=== PATIENT | female | born 1945 | race Caucasian/White ===

== ENCOUNTER → 2024-01-19 10:38 | Outpatient (REF) | payer MEDICARE, OTHER, SELFPAY | LOC: WDC 10:38 | PROVIDERS: ATTENDING PHYSICIAN Family Medicine | DX: Z12.31 Encounter for screening mammogram for malignant neoplasm of breast (principal) | CPT/HCPCS: 77063; 77067 ==

== ENCOUNTER → 2025-02-21 13:48 | Outpatient (REF) | payer MEDICARE, OTHER, SELFPAY | LOC: WDC 13:48 | PROVIDERS: ATTENDING PHYSICIAN Family Medicine | DX: Z12.31 Encounter for screening mammogram for malignant neoplasm of breast (principal); M79.18 Myalgia, other site | CPT/HCPCS: 72110; 73502; 77063; 77067 ==